=== PATIENT | female | born 1945 | race Caucasian/White ===

== ENCOUNTER 2022-09-20 13:35 | Outpatient (REF) | payer MEDICARE, SELFPAY ==
--- NOTE | ~2022-09-20 | XR_ITS ---
EXAMINATION: XR LUMBOSACRAL SPINE WITH OBLIQUES CLINICAL INFORMATION: Arthrodesis status. COMPARISON: None available. TECHNIQUE: 4 views lumbosacral spine including flexion and extension. FINDINGS: There is posterior fixation with pedicular screws at L3-L4 with an interbody device. The hardware appears intact. There is barely perceptible grade 1 anterolisthesis of L3 upon L4 which does not change with flexion or extension. Mild degenerative changes are present elsewhere. There is mild retrolisthesis of L1 upon L2 and mild grade 1 anterolisthesis of L5 upon S1. XR/XR lumbar spine 4V min IMPRESSION: Posterior fixation and interbody device L3-L4. Mild retrolisthesis of L1 upon L2 and anterolisthesis of L5 upon S1.
== END 2022-09-20 13:36 | disposition home or self-care (01) ==
LOC: HO.HOSX 13:35
PROVIDERS: Visit Provider Neurological Surgery
DX: Z98.1 Arthrodesis status (principal)
CPT/HCPCS: 72110; 99212